=== PATIENT | female | born 1985 | race Asian ===

== ENCOUNTER 2016-11-14 16:15 | Inpatient (IN) | payer SELFPAY ==
[~2016-11-14] VITALS: Ht 170 cm; Wt 72.6 kg
[2016-11-14] MEDS ORDERED: LR 1,000 ML IV ONE (16:45)
[2016-11-14] MEDS ORDERED: CEFAZOLIN 2 GM IVPB PREMIX 50 ML IV ONE (16:45)
[2016-11-14] MEDS ORDERED: TERBUTALINE SULFATE 1 MG/ML VIAL SUBCUT ONE (17:15)
[2016-11-14 17:19] LABS: BASOPHILS # (AUTO) 0.1 K/uL (0.0-0.2); BASOPHILS % (AUTO) 0.8 % (0.0-2.0); EOSINOPHILS % (AUTO) 0.4 % (0.0-4.0); HEMATOCRIT 37.2 % (36-48); HEMOGLOBIN 12.6 g/dL (12.0-16.0); MEAN CORPUSCULAR HEMOGLOBIN 32 pg (27-31); MEAN CORPUSCULAR HGB CONC 34 % (32-36); MEAN CORPUSCULAR VOLUME 94 fL (79.0-98.0); MONOCYTES # (AUTO) 0.7 K/uL (0.0-1.0); MONOCYTES % (AUTO) 8.6 % (1.7-9.3); NEUTROPHILS # (AUTO) 5.7 K/uL (1.8-7.7); NEUTROPHILS % (AUTO) 66.2 % (40.0-70.0); PLATELET COUNT (AUTO) 173 K/uL (130-430); RED BLOOD CELL COUNT(AUTO) 3.96 MIL/uL (4.2-6.2); WHITE BLOOD COUNT (AUTO) 8.5 K/uL (4.8-10.8)
[2016-11-14] MEDS ORDERED: TERBUTALINE SULFATE 1 MG/ML VIAL ONE (17:21)
[2016-11-14] MEDS ORDERED: OXYTOCIN/NORMAL SALINE 1,000 ML IV ONE (18:24)
[2016-11-14] MEDS ORDERED: MEASLES,MUMPS&RUBELLA VACC/PF 12500 UNIT/0.5 ML VIAL SUBQ PRN (18:30)
[2016-11-14] MEDS ORDERED: LANOLIN 7 GM OINT. TP PRN (18:30)
[2016-11-14] MEDS ORDERED: HYDROcodone/ACETAMIN 5-325 MG TAB (NORCO/ VICODIN) PO PRN (18:30)
[2016-11-14] MEDS ORDERED: ANUSOL 1 EA SUPP.RECT (PREPARATION H) RC PRN (18:30)
[2016-11-14] MEDS ORDERED: OXYCODONE/ACETAMINOPHEN 5-325 TABLET PO PRN ×2 (18:30)
[2016-11-14] MEDS ORDERED: SIMETHICONE 80 MG TAB.CHEW PO PRN (18:30)
[2016-11-14] MEDS ORDERED: DOCUSATE SODIUM 100 MG CAPSULE PO PRN (18:30)
[2016-11-14] MEDS ORDERED: LR 1,000 ML IV.SOLN IV ONE (18:50)
[2016-11-14] MEDS ORDERED: BUPIVACAINE /PF 0.75% 10 ML VIAL INJ ONE (18:50)
[2016-11-14] MEDS ORDERED: NS IRRIG SOLN 1000 ML IR ONE (18:50)
[2016-11-14] MEDS ORDERED: METHYLERGONOVINE MALEATE 0.2 MG/ML AMP IM ONE (18:50)
[2016-11-14] MEDS ORDERED: NORMAL SALINE 10 ML VIAL IVP ONE (18:50)
[2016-11-14] MEDS ORDERED: OXYTOCIN 10 UNIT/ML VIAL IV ONE (18:50)
[2016-11-14] MEDS ORDERED: TRIAMCINOLONE ACETONIDE 40 MG/ML IM ONE (18:50)
[2016-11-14] MEDS ORDERED: LR 1,000 ML IV SCH (19:40)
[2016-11-14] MEDS ORDERED: ONDANSETRON HCL 4 MG/2 ML VIAL IVP PRN ×2 (19:45)
[2016-11-14] MEDS ORDERED: NALOXONE HCL 0.4 MG/ML AMP (NARCAN) IVP PRN (19:45)
[2016-11-14] MEDS ORDERED: MORPHINE SULFATE 10MG/10ML PF AMP SP SCH (19:45)
[2016-11-14] MEDS ORDERED: KETOROLAC TROMETHAMINE 60 MG/2 ML VIAL IM PRN (19:45)
[2016-11-14] MEDS ORDERED: DIPHENHYDRAMINE INJ 50 MG/ML VIAL IM PRN (19:45)
[2016-11-14] MEDS ORDERED: TEMAZEPAM 15 MG CAPSULE PO PRN (21:00)
[2016-11-14 22:41] VITALS: BP_SYST 120
[2016-11-14] MEDS: CEFAZOLIN 1 GM IVPB PREMIX 50 ML IV SCH (23:59)
[2016-11-15] MEDS: CEFAZOLIN 1 GM IVPB PREMIX 50 ML IV SCH ×2 (05:42→12:09)
[2016-11-15 07:50] LABS: BASOPHILS % (AUTO) 0.3 % (0.0-2.0); EOSINOPHILS % (AUTO) 0.3 % (0.0-4.0); HEMATOCRIT 34.2 % (36-48); HEMOGLOBIN 11.6 g/dL (12.0-16.0); LYMPHOCYTES # (AUTO) 1.6 K/uL (1.0-5.5); MEAN CORPUSCULAR HEMOGLOBIN 32 pg (27-31); MEAN CORPUSCULAR HGB CONC 34 % (32-36); MEAN CORPUSCULAR VOLUME 95 fL (79.0-98.0); MONOCYTES # (AUTO) 0.7 K/uL (0.0-1.0); MONOCYTES % (AUTO) 6.6 % (1.7-9.3); NEUTROPHILS # (AUTO) 8.9 K/uL (1.8-7.7); NEUTROPHILS % (AUTO) 78.8 % (40.0-70.0); PLATELET COUNT (AUTO) 138 K/uL (130-430); RED BLOOD CELL COUNT(AUTO) 3.62 MIL/uL (4.2-6.2); RED CELL DISTRIBUTION WIDTH 12.9 % (9.0-15.0)
[2016-11-15 08:08] LABS: WHITE BLOOD COUNT (AUTO) 11.2 K/uL (4.8-10.8)
[2016-11-15] MEDS: IBUPROFEN 600 MG TABLET PO SCH ×4 (12:08→23:51)
[2016-11-16] MEDS: IBUPROFEN 600 MG TABLET PO SCH ×2 (05:29→12:12)
== END 2016-11-16 17:05 | disposition home or self-care (01) | DRG 766 ==
LOC: SPU 16:15
PROVIDERS: ADMIT Obstetrics & Gynecology; ATTEND Obstetrics & Gynecology
PROC: 10D00Z1 Extraction of Products of Conception, Low, Open Approach (ICD-10-PCS; principal; 2016-11-14 19:00)
DX: O34.211 Maternal care for low transverse scar from previous cesarean delivery (principal); Z37.0 Single live birth; Z3A.38 38 weeks gestation of pregnancy
CPT/HCPCS: 36415; 85025; 86886; 86900; 86901; 94760; J0690; J1885; J2210; J2590; J3105; J3301; J3490; J7120